=== PATIENT | female | born 1985 | race Caucasian/White ===

== ENCOUNTER 2020-08-29 01:20 | Emergency (ER) | payer OTHER ==
[~2020-08-29] VITALS: Ht 157.5 cm; Wt 98.9 kg
[2020-08-29 01:31] VITALS: Ht 157.5 cm; Wt 98.9 kg
[2020-08-29 02:29] VITALS: BP 139/85
== END 2020-08-29 02:29 | disposition home or self-care (01) ==
LOC: ED 01:20
DX: S93.502A Unspecified sprain of left great toe, initial encounter (principal); X58.XXXA Exposure to other specified factors, initial encounter; Y93.89 Activity, other specified; Y92.89 Other specified places as the place of occurrence of the external cause; Y99.0 Civilian activity done for income or pay